=== PATIENT | female | born 1940 | race Caucasian/White ===

== ENCOUNTER → 2017-04-06 | Outpatient (CLI) | payer MEDICARE, BC ==
--- NOTE | 2017-04-06 13:35 | PCVCIMAG ---
EXAM: BILATERAL LOWER EXTREMITY ARTERIAL DUPLEX INDICATION: Peripheral Arterial Disease. Leg pain. FINDINGS: Right Leg: Satisfactory arterial waveforms in the common and profunda femoral arteries and throughout the superficial femoral artery and popliteal artery without flow-limiting stenosis. Long segment occlusion throughout the posterior tibial artery. Peroneal artery is patent. 70% stenosis proximal anterior tibial artery. Left Leg: Satisfactory arterial waveforms in the common and profunda femoral arteries and throughout the superficial femoral artery and popliteal artery without flow-limiting stenosis. Long segment occlusion throughout the posterior tibial artery. Peroneal artery is patent. 70% stenosis proximal anterior tibial artery. IMPRESSION: No right or left superficial femoral or popliteal artery stenosis. 70% stenosis in the proximal right and left anterior tibial arteries. Previous stent distal left superficial femoral artery maintaining good patency. 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 LOC:[id number]
== END | disposition home or self-care (01) ==
LOC: PCVCIMAG 09:24
PROVIDERS: ATTEND Internal Medicine Cardiovascular Disease
DX: I73.9 Peripheral vascular disease, unspecified (principal); I25.10 Atherosclerotic heart disease of native coronary artery without angina pectoris; I35.0 Nonrheumatic aortic (valve) stenosis; I10 Essential (primary) hypertension; E78.00 Pure hypercholesterolemia, unspecified; J44.9 Chronic obstructive pulmonary disease, unspecified; Z98.890 Other specified postprocedural states; Z88.1 Allergy status to other antibiotic agents; Z88.6 Allergy status to analgesic agent; Z79.899 Other long term (current) drug therapy; Z87.891 Personal history of nicotine dependence
CPT/HCPCS: 80061; 93005; 93925; G0463

== ENCOUNTER → 2017-10-05 | Outpatient (CLI) | payer MEDICARE, BC ==
[~2017-10-05] MED LIST: REGADENOSON 0.4 MG/5 ML DISP.SYRIN. IV ONE
--- NOTE | 2017-10-05 09:56 | PCVCIMAG ---
APPROVED REPORT Study performed: 10/05/2017 08:30:39 EXAM: Comprehensive 2D, Doppler, and color-flow Echocardiogram Patient Location: Echo lab Status: routine BSA: 1.71 HR: 66 bpmBP: 140/60 mmHg Rhythm: NSR Other Information Study Quality: Good Indications CAD Hypertension/HDD Aotic Stenosis. PVD, Hyperlipidemia 2D Dimensions LVEF(%): 71.98 (>50%) IVSd: 9.64 (7-11mm)LVOT Diam: 20.09 (18-24mm) LVDd: 36.97 mm PWd: 10.09 (7-11mm)Ascending Ao: 31.59 (22-36mm) LVDs: 22.03 (25-40mm) Left Atrium: 32.18 (27-40mm) Aortic Root: 27.26 mm LV Single Plane 2CH: 75.14 %Khanna's LVEF: 71.98 % Volumes Left Atrial Volume (Systole) Single Plane 4CH: 29.42 mLSingle Plane 2CH: 21.12 mL LA ESV Index: 16.00 mL/m2 Aortic Valve AoV Peak Morro.: 2.83 m/s AO Peak Gr.: 32.08 mmHgLVOT Max P.63 mmHg AO Mean Gr.: 19.61 mmHgLVOT Mean P.22 mmHg AO V2 Mean: 2.15 m/sLVOT Max V: 0.95 m/s AO V2 VTI: 67.73 cmLVOT Mean V: 0.71 m/s JOÃO (VTI): 1.26 [id number] V1 VTI: 26.85 cm JOÃO Vmax: 1.07 cm2 AI Vmax: 3.61 m/sSV (LVOT): 85.[address] [place]: 2.34 m/s2 AI PHT: 446.38 ms Mitral Valve E/A Ratio: 0.7 MV Decel. Time: 326.97 ms MV E Max Morro.: 0.98 m/s MV A Morro.: 1.37 m/s TDI E/Lateral E': 14.00E/Medial E': 19.60 Medial E' Morro.: 0.05 m/s Lateral E' Morro.: 0.07 m/s Pulmonary Valve PV Peak Gr.: 2.55 mmHg Pulmonary Vein P Vein S: 0.76 m/sP Vein A: 0.33 m/s P Vein D: 0.46 m/sP Vein A Dur.: 114.2 msec P Vein S/D Ratio: 1.65 Tricuspid Valve TR Peak Morro.: 2.86 m/s TR Peak Gr.: 32.80 mmHg Left Ventricle The left ventricle is normal size. There is normal LV segmental wall motion. There is normal left ventricular wall thickness. Left ventricular systolic function is normal. The left ventricular ejection fraction is within the normal range. LVEF is 65-70%. The left ventricular diastolic function is normal. Right Ventricle The right ventricle is normal size. The right ventricular systolic function is normal. Atria The left atrium size is normal. The right atrium size is normal. Aortic Valve Aortic valve is probably trileaflet. Aortic valve leaflets are moderately thickened. Mild aortic regurgitation. Moderate aortic stenosis. Highest mean aortic valve gradient is 19mmhg Highest Peak aortic valve gradient is 32mmhg. Aortic valve area is 1.1cm2. Mitral Valve The mitral valve is normal in structure. There is no mitral valve regurgitation noted. No evidence of mitral valve stenosis. Tricuspid Valve The tricuspid valve is normal in structure. Mild tricuspid regurgitation. Pulmonary artery pressure is 39mmhg. Pulmonic Valve The pulmonary valve is normal in structure. Trace pulmonic regurgitation. Great Vessels The aortic root is normal in size. IVC is normal in size and collapses with >50% inspiration Pericardium There is no pericardial effusion. <Conclusion> The left ventricle is normal size. LVEF is 65-70%. The left ventricular diastolic function is normal. The right ventricle is normal size. The left atrium size is normal. Aortic valve is probably trileaflet. Aortic valve leaflets are moderately thickened. Mild aortic regurgitation. Moderate aortic stenosis. Highest mean aortic valve gradient is 19mmhg Highest Peak aortic valve gradient is 32mmhg. Aortic valve area is 1.1cm2. There is no mitral valve regurgitation noted. Mild tricuspid regurgitation. Pulmonary artery pressure is 39mmhg. There is no pericardial effusion.
--- NOTE | 2017-10-05 17:34 | PCVCIMAG ---
APPROVED REPORT Exam: Nuclear Stress Test Indication: Atrial Fibrillation Patient Location: Out-Patient Stress Nurse: Juju Nice RN, Lita Dudley RN HI Tech:Ruma Brizuela [facility] Ht: 5 ft 6 in Wt: 136 lbs BSA: 1.70 m2 HR: 67 bpm BP: 136/80 mmHg BMI: 21.9 Rhythm: SR Medical History Medical History: Hyperlipidemia, CAD, PVD, CVD, AFIB, Age Allergies: Bactrim, Oxycodone Previous Cardiac Procedures: PCI Pretest Chest Pain Characteristics: No chest pain NM EXAM: Myocardial Perfusion REST/STRESS Imaging Protocol: Rest Tc-99m/Stress Tc-99m 1 day Resting Data Rest SPECT myocardial perfusion imaging was performed in supine position 45 minutes following the intravenous injection of 8.9 mCi of Tc-99m Sestamibi. Time of rest injection: 0915 Date: 10/05/2017 Administration Route: IV Administration Site: Right Hand Pharmacologic Stress Pharmacologic stress test was performed by injecting Regadenoson 0.4 mg IV push followed by the intravenous injection of 27.5 mCi of Tc-99m Sestamibi. Time of stress injection: 1100 Date: 10/05/2017 Administration Route: IV Administration Site: Right Hand Gated Stress SPECT was performed 60 minutes after stress injection. The images were gated to evaluate regional wall motion and calculate left ventricular ejection fraction. Study Quality Study: Good Study Data Post stress, the left ventricular ejection was 78%.. SSS: 0 SRS: 0 SDS: 0 TID = 0.88. Perfusion Small sized area of mild reversible ischemia involving the apex of the left ventricle consistent with a left anterior descending distribution. Wall Motion Normal left ventricular size and function with no regional wall motion abnormalities. Nuclear Conclusion Small sized area of mild reversible ischemia involving the apex of the left ventricle consistent with a left anterior descending distribution. Normal left ventricular size and function with no regional wall motion abnormalities. Post stress, the left ventricular ejection was 78%.. No change since prior study dated September 2015. Interpreted by: Heriberto Langston MD Electronically Approved: 10/05/2017 16:54:54 Stress Test Details Stress Test: Pharmacologic stress was paired with low level exercise. Reason for pharmacologic stress test: physical limitation. HR Resting HR: 67 bpmMax Heart Rate (APMHR): 143 bpm Max HR Achieved: 89 bpmTarget HR (85% APMHR): 121 bpm % of APMHR: 62 Recovery HR: 72 bpm BP Resting BP: 136/80 mmHg Max BP: 146/78 mmHg ECG Resting ECG: Sinus Rhythm , Anteroseptal NE pattern Stress ECG: Sinus Rhythm , Sinus Rhythm, NSSTT changes Clinical Reason for Termination: Completed protocol Stress Symptoms: Light-headed Exercise duration: 4 min 00 sec Exercise capacity: 1.6 METs Symptoms resolved during recovery. Stress ECG Conclusion ECG: Non-ischemic Clinical: Non-ischemic <Conclusion> ECG: Non-ischemic Clinical: Non-ischemic
== END | disposition home or self-care (01) ==
LOC: PCVCIMAG 08:24
PROVIDERS: ATTEND Internal Medicine Cardiovascular Disease
DX: I08.2 Rheumatic disorders of both aortic and tricuspid valves (principal); I25.10 Atherosclerotic heart disease of native coronary artery without angina pectoris; I10 Essential (primary) hypertension; E78.5 Hyperlipidemia, unspecified; I73.9 Peripheral vascular disease, unspecified; I48.91 Unspecified atrial fibrillation; Z95.5 Presence of coronary angioplasty implant and graft
CPT/HCPCS: 78452; 93017; 93306; A9500; J2785